=== PATIENT | male | born 1985 | race African-American/Black ===

== ENCOUNTER 2017-01-26 18:59 | Emergency (ER) | payer SELFPAY ==
[~2017-01-26] VITALS: Ht 175.3 cm; Wt 81.6 kg
--- NOTE | 2017-01-26 18:59 | NUR ---
Patient KARENRadha ARIELLA, triaged by RN. Waiting for an available bed.
[2017-01-26 19:04] VITALS: BP 123/92
[2017-01-26] MEDS ORDERED: HYDROmorphone PFS 2 MG/ML SYR IM ONE (19:15)
[2017-01-26] MEDS ORDERED: LORazepam 2 MG/ML VIAL IM ONE (19:15)
--- NOTE | 2017-01-26 19:20 | NUR ---
Patient transferred to bed 5 for further care. RN evaluating patient at bedside.
[2017-01-26] MEDS ORDERED: LORazepam 2 MG/ML VIAL ONE (19:21)
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
--- NOTE | 2017-01-26 19:59 | NUR ---
Patient taken to bed 07 via gurney per nurses.
--- NOTE | 2017-01-26 20:06 | NUR ---
Dr. Cortez evaluating patient at bedside.
--- NOTE | 2017-01-26 20:31 | NUR ---
XRAY at bedside.
--- NOTE | 2017-01-26 20:36 | NUR ---
Patient going to CT via dena alaniz.
--- NOTE | 2017-01-26 20:58 | NUR ---
Patient back from CT [facility].
--- NOTE | 2017-01-26 21:00 | NUR ---
REPORT RECEIVED FROM RICHIE GUADARRAMA. PT BACK FROM CT IN STABLE CONDITION. PT SLEEPING AT THIS TIME, EASILY AROUSED. NO C/O PAIN AT THIS TIME.
[2017-01-26 22:10] VITALS: BP 125/79
--- NOTE | 2017-01-26 22:10 | NUR ---
Patient discharged with v/s stable. Written and verbal after care instructions given and explained. Patient alert, oriented and verbalized understanding of instructions. Ambulatory with steady gait. All questions addressed prior to discharge. ID band removed. Patient advised to follow up with PMD. Rx of FLEXERIL AND IBUPROFEN given. Patient educated on indication of medication including possible reaction and side effects. Opportunity to ask questions provided and answered.
== END 2017-01-26 22:10 | disposition home or self-care (01) ==
LOC: MED 18:59
DX: S39.012A Strain of muscle, fascia and tendon of lower back, initial encounter (principal); S16.1XXA Strain of muscle, fascia and tendon at neck level, initial encounter; V49.49XA Driver injured in collision with other motor vehicles in traffic accident, initial encounter; Y93.89 Activity, other specified; Y92.89 Other specified places as the place of occurrence of the external cause; Y99.8 Other external cause status
CPT/HCPCS: 71010; 72125; 72131; 96372; 99284; J1170; J2060; Q0092